=== PATIENT | female | born 1960 | race Hispanic/Latino ===

== ENCOUNTER 2017-04-13 05:26 | Emergency (ER) | payer OTHER ==
[~2017-04-13] VITALS: Ht 157.5 cm; Wt 81.2 kg
[~2017-04-13 05:26] MED LIST: ANTIVERT25 MG PO; AUGMENTIN 875 M1 TAB PO; BACTRIM DS 8001 TAB PO; CHOLESTEROL MED PO; CIPRO 500MG TA500 MG PO; CIPROFLOXACIN250 M2 PO; FLEXERIL10 MG PO; IMITREX50 MG PO; LEVOTHYROXIN0.025 MG PO; MASON NATURAL2000 IU PO; PRILOSEC OTC20 MG PO; PRILOSEC20 M1 PO; PYRIDIUM100 MG PO; PYRIDIUM200 MG PO; ZOFRAN ODT4 M1 SL; ZOFRAN ODT4 MG SL; ZOFRAN4 M2 PO
--- NOTE | 2017-04-13 08:31 | RADIOLOGY REPORT ---
EXAMINATION: XR CHEST CLINICAL INFORMATION: Productive cough. COMPARISON: 11/25/2006 TECHNIQUE: 2 views of the chest were obtained. FINDINGS: The lungs are well expanded. There is no focal consolidation, edema, or effusion. No pneumothorax. The cardiomediastinal silhouette is normal in size with a calcified aorta. No acute osseous abnormality. IMPRESSION: No acute pulmonary findings.
--- NOTE | 2017-04-13 08:52 | ED INFLUENZA/URI COMPLAINT ---
History of Present Illness General Chief Complaint: Upper Respiratory Sx/Fever Stated Complaint: COUGH Source: patient, family, old records Exam Limitations: no limitations Vital Signs & Intake/Output Vital Signs & Intake/Output Vital Signs Date Time Temp Pulse Resp B/P B/P Pulse O2 O2 Flow FiO2 Mean Ox Delivery Rate 04/13 0901 97.0 84 20 127/84 96 Room Air 04/13 0835 99.0 04/13 0800 99.0 04/13 0755 97 04/13 0711 99.0 80 20 173/85 99 Room Air 04/13 0649 98.2 75 16 128/70 98 Room Air 04/13 0647 Room Air Allergies Coded Allergies: aspirin (Intermediate, UPSET GI 06/23/15) Reconcile Medications Albuterol Sulfate (Proair Hfa) 90 MCG HFA.AER.AD 2 PUF INH Q4-6 PRN PRN bronchospasm Amoxicillin 875 MG TABLET 1 TAB PO BID sinusitis Codeine Phosphate/Guaifenesi (Cheratussin AC Syrup) 10 MG-100 MG/5 ML LIQUID 5 -10 ML PO Q4-6H PRN cough Dexamethasone 4 MG TABLET 4 TAB PO BID sinusitis Ibuprofen 600 MG TABLET 1 TAB PO Q6PRN PRN pain with food Levothyroxine Sodium (Unknown Strength) TAB (Unknown Dose) PO DAILY AC THYROID (Reported) Ondansetron (Zofran Odt) 4 MG TAB.RAPDIS 1 TAB SL TID PRN NAUSEA Oxymetazoline HCl (Afrin) 0.05 % SPRAY 2 SPRAY NASB BID sinusitis Triage Note: PT STATES THAT SHE HAS HAD A COUGH THAT STARTED 2 DAYS AGO.. PT STATES THAT SHE CANT LAY DOWN BECAUSE OF THE SOB AND CP 12/20 Triage Nurses Notes Reviewed? yes Onset: Last week Duration: day(s):, constant, continues in ED Timing: recent history Severity: moderate, severe Prior Episodes/Possible Cause: illness exposure No Modifying Factors: none Associated Symptoms: cough, fever/chills, muscle aches, nasal congestion, nasal drainage, sinus infection, sore throat LMP (ages 10-50): post menopausal : No Patient currently breastfeeds: No HPI: 5 days prior to admission patient complains of sore throat nasal congestion nonproductive cough and bodyaches fever chills anorexia chest pain and abdominal pain associated with cough. She denies shortness of breath headache dysuria rash bleeding. Past History Travel History Traveled to [place] past 21 day No Medical History Any Pertinent Medical History? 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 No Review of Systems Review of Systems Constitutional: Reports: see HPI, chills, fever, malaise. EENTM: Reports: see HPI, nasal congestion, throat pain. Respiratory: Reports: see HPI, cough. Denies: sputum production. Cardiovascular: Reports: no symptoms. GI: Reports: see HPI, nausea. Genitourinary: Reports: no symptoms. Musculoskeletal: Reports: no symptoms. Skin: Reports: no symptoms. Neurological/Psychological: Reports: no symptoms. Hematologic/Endocrine: Reports: no symptoms. Immunologic/Allergic: Reports: no symptoms. All Other Systems: Reviewed and Negative Physical Exam Physical Exam General Appearance: well developed/nourished, alert, awake, anxious, mild distress, obese Head: atraumatic, normal appearance, tenderness (frontal maxillary sinus) Eyes: Bilateral: normal appearance, PERRL, EOMI. Ears, Nose, Throat: normal ENT inspection, moist mucous membrane, hearing grossly normal, nasal congestion, nasal drainage Neck: normal inspection, supple, full range of motion, trachea midline, limited range of motion, no midline tenderness Respiratory: chest non-tender, no respiratory distress, quiet respiration, lungs clear Cardiovascular: regular rate/rhythm, normal peripheral pulses, norml femoral pulses equa Peripheral Pulses: 4+ carotid (R), 4+ carotid (L) Gastrointestinal: normal bowel sounds, soft, non-tender, no organomegaly Back: normal inspection, normal range of motion Extremities: normal inspection, normal capillary refill, normal range of motion, no edema Neurologic/Psych: no motor/sensory deficits, awake, alert, oriented x 3, normal gait, normal mood/affect, 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 Skin: intact, normal color, warm/dry Lymphatic: no anterior cervical kim Core Measures Sepsis Present: No Sepsis Focused Exam Completed? No Progress Differential Diagnosis: influenza, pneumonia, pharyngitis, sinusitis Plan of Care: Orders Procedure Date/time Status EKG 04/13 0647 Active Diagnostic Imaging: Viewed by Me: Radiology Read. Discussed w/RAD: Radiology Read. CXR Impression: no acute abnormality Initial ED EKG: none Departure Departure Time of Disposition: 929 Disposition: HOME OR SELF CARE Condition: Stable Clinical Impression Primary Impression: Sinusitis Secondary Impressions: Bronchitis Referrals: Tami De La Cruz APRN (PCP/Family) Departure Forms: Customer Survey General Discharge Information Prescriptions: Current Visit Scripts Albuterol Sulfate (Proair Hfa) 2 PUF INH Q4-6 PRN PRN bronchospasm #1 INHAL Dexamethasone 4 TAB PO BID #10 TAB Codeine Phosphate/Guaifenesi (Cheratussin AC Syrup) 5-10 ML PO Q4-6H PRN cough #240 ML Amoxicillin 1 TAB PO BID #20 TAB Oxymetazoline HCl (Afrin) 2 SPRAY NASB BID #30 ML Ibuprofen 1 TAB PO Q6PRN PRN pain #50 TAB with food
[2017-04-13] MEDS ORDERED: CHERATUSSIN AC118 M1 PO (08:58)
[2017-04-13] MEDS ORDERED: PROAIR HFA8.5 GM INH (08:58)
[2017-04-13] MEDS ORDERED: AMOXICILLIN875 M1 PO (08:58)
[2017-04-13] MEDS ORDERED: IBUPROFEN600 M1 PO (08:58)
[2017-04-13] MEDS ORDERED: DEXAMETHASONE4 M1 PO (08:58)
[2017-04-13] MEDS ORDERED: AFRIN30 ML NASB (08:58)
[2017-04-13 09:01] VITALS: BP 127/84
== END 2017-04-13 09:46 ==
LOC: ERH 05:26
DX: J32.9 Chronic sinusitis, unspecified (principal); J40 Bronchitis, not specified as acute or chronic; R07.9 Chest pain, unspecified; R10.9 Unspecified abdominal pain; R50.9 Fever, unspecified
CPT/HCPCS: 1263; 71046; 93005; 93010; 96361; 96374; 96375; J0131

== ENCOUNTER 2017-05-06 11:24 | Emergency (ER) | payer OTHER ==
[~2017-05-06] VITALS: Ht 157.5 cm; Wt 79.4 kg
[~2017-05-06 11:24] MED LIST changes: +AFRIN30 ML NASB; +AMOXICILLIN875 M1 PO; +CHERATUSSIN AC118 M1 PO; +DEXAMETHASONE4 M1 PO; +IBUPROFEN600 M1 PO; +PROAIR HFA8.5 GM INH
--- NOTE | 2017-05-06 12:30 | ED GENERAL ADULT ---
History of Present Illness General Chief Complaint: General Adult Stated Complaint: PT STATES "I HAVE THE FLU/2ND TIME HERE" Source: patient, family Exam Limitations: language barrier Vital Signs & Intake/Output Vital Signs & Intake/Output Vital Signs Date Time Temp Pulse Resp B/P B/P Pulse O2 O2 Flow FiO2 Mean Ox Delivery Rate 05/06 1250 98.1 88 18 124/70 98 Room Air 05/06 1129 97.7 92 15 125/79 97 Room Air Room Air Allergies Coded Allergies: aspirin (Intermediate, UPSET GI 05/06/17) Reconcile Medications Albuterol Sulfate (Proair Hfa) 90 MCG HFA.AER.AD 2 PUF INH Q4-6 PRN PRN bronchospasm Amoxicillin 875 MG TABLET 1 TAB PO BID sinusitis Codeine Phosphate/Guaifenesi (Cheratussin AC Syrup) 10 MG-100 MG/5 ML LIQUID 5 -10 ML PO Q4-6H PRN cough Dexamethasone 4 MG TABLET 4 TAB PO BID sinusitis Ibuprofen 600 MG TABLET 1 TAB PO Q6PRN PRN pain with food Levothyroxine Sodium (Unknown Strength) TAB (Unknown Dose) PO DAILY AC THYROID (Reported) Ondansetron (Zofran Odt) 4 MG TAB.RAPDIS 1 TAB SL TID PRN NAUSEA Ondansetron HCl (Zofran) 4 MG TABLET 1 TAB PO Q6-8P NAUSEA Oseltamivir Phosphate (Tamiflu) 75 MG CAPSULE 1 CAP PO BID INFLUENZA Oxymetazoline HCl (Afrin) 0.05 % SPRAY 2 SPRAY NASB BID sinusitis Triage Note: PT TO ED FOR C/C OF URI SYMPTOMS X 2 WEEKS. SEEN HERE AND GIVEN PO ANTIBIOTICS AND COUGH MEDICINE. PT WAS COMPLIANT WITH ALL MEDS. CLEAR PRODUCTIVE COUGH. NASAL CONGESTION. +SORE THROAT WELL. Triage Nurses Notes Reviewed? yes Onset: Abrupt Duration: day(s): Timing: recent history HPI: 05/06/17 12:35 PM 57-year-old female presents to the emergency department complaining of cough, runny nose, nasal congestion and fever. The onset of the symptoms were abrupt, the duration has been approximately 48 hours, the severity is significant; as her symptoms required to come to the emergency department for care. She has past medical history of hypothyroidism. Past surgical history for bladder surgery. No shortness of breath or chest pain. She does admit to vomiting. No abdominal pain. She had been seen on April 13 and diagnosed with sinusitis and bronchitis and treated with amoxicillin. Past History Travel History Traveled to [place] past 21 day No Medical History Any Pertinent Medical History? 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 No Review of Systems Review of Systems Constitutional: Reports: fever. EENTM: Reports: nasal congestion. Respiratory: Reports: cough. Denies: short of breath. Cardiovascular: Denies: chest pain. GI: Reports: see HPI. Denies: abdominal pain. Genitourinary: Reports: no symptoms. Musculoskeletal: Reports: muscle pain. Skin: Denies: rash. Neurological/Psychological: Reports: no symptoms. Hematologic/Endocrine: Reports: no symptoms. Immunologic/Allergic: Reports: no symptoms. Physical Exam Physical Exam General Appearance: well developed/nourished, alert, awake, anxious, mild distress Head: atraumatic, normal appearance Eyes: Bilateral: normal appearance, PERRL, EOMI. Ears, Nose, Throat: nasal congestion, pharyngeal erythema Neck: normal inspection, supple, full range of motion Respiratory: normal breath sounds, chest non-tender, no respiratory distress Cardiovascular: regular rate/rhythm Peripheral Pulses: 4+ radial (R), 4+ radial (L) Gastrointestinal: soft, non-tender Back: normal inspection, vertebral tenderness Extremities: normal inspection, normal capillary refill, normal range of motion Neurologic/Psych: no motor/sensory deficits, awake, alert, oriented x 3 Skin: intact, normal color, warm/dry Core Measures ACS in differential dx? No CVA/TIA Diagnosis: No Sepsis Present: No Sepsis Focused Exam Completed? No Progress Differential Diagnoses I considered the following diagnoses in my evaluation of the patient: Influenza, bronchitis, pneumonia Plan of Care: Orders Procedure Date/time Status RAPID VIRAL INFLUENZA A 05/06 1137 Complete VIRAL CULTURE 05/06 1137 Active THROAT CULTURE W/QUICK STREP 05/06 1134 Active Laboratory Tests 05/06/17 1137: Virus Culture Pending Microbiology 05/06 113 NASOPHARYN: Influenza Virus A & B Rapid Smear - COMP INFLUENZA TYPE B Initial ED EKG: none Departure Departure Disposition: HOME OR SELF CARE Condition: Stable Clinical Impression Primary Impression: Influenza Referrals: Tami De La Cruz APRN (PCP/Family) Departure Forms: Customer Survey General Discharge Information Prescriptions: Current Visit Scripts Ondansetron HCl (Zofran) 1 TAB PO Q6-8P #5 TAB Oseltamivir Phosphate (Tamiflu) 1 CAP PO BID #10 CAP Comments Patient : MESERET MATSON Acct: [id number] DR: Kanu Wright DO Birthdate: [birth year] Age/Sex: 57/F Unit: [id number] Loc: [facility] Status : DEP ER SPEC #: [id number] TAMIKA: 05/06/17 STATUS: COMP RECD: 05/06/17-[address]: Kanu Wright DO ( [facility]) SOURCE: NASOPHARYN ENTR: 05/06/17-[address]: Tami De La Cruz APRN 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 Return to the emergency department if worse. Critical Care Note Critical Care Note Critical Care Time: non-applicable
[2017-05-06] MEDS ORDERED: ZOFRAN4 M2 PO (12:41)
[2017-05-06] MEDS ORDERED: TAMIFLU75 M1 PO (12:41)
[2017-05-06 12:50] VITALS: BP 124/70
== END 2017-05-06 12:50 ==
LOC: ERH 11:24
DX: J11.1 Influenza due to unidentified influenza virus with other respiratory manifestations (principal); Z87.891 Personal history of nicotine dependence
CPT/HCPCS: 87804; 87804-59